=== PATIENT | female | born 1995 | race Caucasian/White ===

== ENCOUNTER 2016-12-01 18:18 | Inpatient (IN) | payer OTHER ==
[~2016-12-01] VITALS: Ht 160 cm; Wt 104.0 kg
[2016-12-01 18:49] VITALS: Ht 160 cm; Wt 104.0 kg
[2016-12-01] MEDS ORDERED: PREN1TAB79 PO (18:49)
[2016-12-01 18:50] VITALS: BP 151/81; PULSE 86; RESP 18
[2016-12-01 19:21] LABS: BASOPHILS % 0.4 % (0.0-2.0); HEMOGLOBIN 11.5 g/dl (12.0-16.0); LYMPHOCYTES % 23.5 % (15.0-51.0); MEAN CORPUSCULAR HGB CONC 33.3 g/dl (32.0-37.0)
[2016-12-01 19:24] LABS: CONDITION 1
--- NOTE | 2016-12-01 19:28 | RADRPT ---
PROCEDURE: US OB CLINICAL INDICATION: POST DATES VAG BLEEDING TECHNIQUE: Multiple sonographic images of the pelvis were obtained. The images were reviewed on a PACS workstation. COMPARISON: None FINDINGS: The cervix is not well visualized. There is a single viable intrauterine gestation. Cardiac activity is present with 148 beats per minute. There is a vertex presentation. The placenta is fundal. There is no evidence for an abruption or placenta previa. There is a subjectively normal amount of amniotic fluid. Measurements were made in order to determine age. The results are as follows (cm): BPD =8.85 HC =31.43 AC =34.25 FL =7.45 Estimated gestational age by ultrasound of approximately 36 weeks, 6 days. The estimated date of delivery by ultrasound is 12/23/2016. Reported gestational age by LMP of approximately 40 weeks, 5 days. The reported date of delivery by LMP was 11/26/2016. EFW = 3230 grams (14th percentile) IMPRESSION: Single viable intrauterine gestation of approximately 36 weeks, 6 days . The estimated date of delivery is 12/23/2016 . Dating by ultrasound is within 3 weeks and 5 days of dating by LMP. Estimated weight in the 14th percentile. Cephalic presentation. RPTAT: EE Physician Cherise Date Time Electronically viewed and signed by Physician Cherise on 12/01/2016 19:27 /
[2016-12-01 19:32] LABS: ADD UMIC YES; URINE BILIRUBIN (Dip) 1+ (NEGATIVE); URINE BLOOD (Dip) 3+ (NEGATIVE); URINE COLOR LT. YELLOW (YELLOW); URINE GLUCOSE (Dip) NEGATIVE (NEGATIVE); URINE KETONES (Dip) TRACE (NEGATIVE); URINE LEUKOCYTE ESTERASE (Dip) 2+ (NEGATIVE); URINE NITRITE (Dip) NEGATIVE (NEGATIVE); URINE TOTAL PROTEIN (Dip) TRACE (NEGATIVE); URINE UROBILINOGEN (Dip) 1.0 E.U./dL (0.1-1.0)
[2016-12-01 19:34] LABS: ALBUMIN 3.3 g/dl (3.3-4.9)
[2016-12-01 19:35] LABS: POTASSIUM 4.2 mmol/L (3.5-5.1)
[2016-12-01 19:36] LABS: CREATININE 0.46 mg/dl (0.44-1.00)
[2016-12-01 19:37] LABS: ALBUMIN/GLOBULIN RATIO 0.97; BARBITURATES Negative (NEGATIVE); BENZODIAZEPINES Negative (NEGATIVE); BILIRUBIN,INDIRECT 0.3 mg/dl (0-1.1); BILIRUBIN,TOTAL 0.3 mg/dl (0.2-1.3); TOTAL PROTEIN 6.7 g/dl (6.1-8.1); URIC ACID 4.5 mg/dl (3.1-7.9)
[2016-12-01 19:38] LABS: CALCIUM 9.1 mg/dl (8.4-10.2); COCAINE Negative (NEGATIVE)
[2016-12-01 19:39] LABS: INR 0.88; OPIATES Negative (NEGATIVE); PARTIAL THROMBOPLASTIN TIME 27.5 Sec (25.0-35.0); PROTIME 11.9 Sec (12.2-14.2); PT RATIO 0.9
[2016-12-01 19:50] LABS: CANNABINOIDS Negative (NEGATIVE)
[2016-12-01 20:16] LABS: ICTOTEST NEGATIVE (NEGATIVE)
[2016-12-01 20:18] LABS: URINE RBCS 0-2 /HPF (0)
[2016-12-01 20:19] LABS: BACTERIA,URINE MODERATE; SQUAMOUS EPITHELIAL CELL,UR MODERATE
[2016-12-01] MEDS ORDERED: OXYTOCIN 30 UNITS/LR 500 ML IV SCH ×3 (21:00)
[2016-12-01] MEDS ORDERED: LIDOCAINE 1% (MPF) 30 ML INJ INJ PRN (21:00)
[2016-12-01] MEDS ORDERED: MISOPROSTOL 200 MCG TAB PR PRN (21:00)
[2016-12-01] MEDS ORDERED: BUTORPHANOL 2 MG INJ IV PRN ×2 (21:00)
[2016-12-01] MEDS ORDERED: CARBOPROST 250 MCG INJ IM PRN (21:00)
[2016-12-01] MEDS ORDERED: METHYLERGONOVINE 0.2 MG INJ IM PRN (21:00)
[2016-12-01] MEDS ORDERED: AMPICILLIN 2 GM/NS (PMX) 100 ML IV ONE (21:00)
[2016-12-01] MEDS ORDERED: OXYTOCIN 30 UNITS/LR 500 ML IV PRN (21:00)
[2016-12-01] MEDS: LACTATED RINGER'S 1,000 ML IV SCH (21:17)
[2016-12-01 23:09] LABS: EOSINOPHILS % 0.3 % (0.0-7.0); HEMATOCRIT 34.5 % (37.0-47.0); LYMPHOCYTES # 2.1 10^3/ul (0.8-2.9); MEAN CORPUSCULAR HEMOGLOBIN 29.4 pg (29.0-33.0); MEAN CORPUSCULAR VOLUME 88.4 fl (82.0-101.0); MEAN PLATELET VOLUME 11.1 fl (7.4-10.4); MONOCYTE # 0.7 10^3/ul (0.3-0.9); MONOCYTES % 7.3 % (0.0-11.0); NEUTROPHIL # 6.3 10^3/ul (1.6-7.5); NEUTROPHILS % 68.5 % (39.0-77.0); PLATELET COUNT 214 10^3/UL (140-440); RED BLOOD COUNT 3.91 10^6/ul (4.20-5.40); RED CELL DISTRIBUTION WIDTH 13.5 % (11.5-14.5); UNCORRECTED WBC 9.1 10^3/ul (4.8-10.8); WHITE BLOOD COUNT 9.1 10^3/ul (4.8-10.8)
[2016-12-02] VITALS (7 sets, daily range): BP systolic 124–146; BP diastolic 61–75; PULSE 79–95; RESP 18–20
[2016-12-02] MEDS: AMPICILLIN 1 GM/NS (PMX) 50 ML IV SCH ×5 (01:05→16:58)
[2016-12-02] MEDS: LACTATED RINGER'S 1,000 ML IV SCH (05:25)
[2016-12-02] MEDS: LACTATED RINGER'S 1,000 ML IV PRN ×3 (09:05→18:22)
[2016-12-02] MEDS ORDERED: DIPHENHYDRAMINE 50 MG INJ IV PRN (10:00)
[2016-12-02] MEDS ORDERED: ONDANSETRON 4 MG INJ IV PRN (10:00)
[2016-12-02] MEDS ORDERED: FENTAnyl 2MCG/ML-ROPIV 0.2% 100 ML BAG EPI SCH (10:00)
[2016-12-02] MEDS ORDERED: NALOXONE (0.4 MG/ML) INJ IV PRN (10:00)
--- NOTE | 2016-12-02 10:48 | HP ---
Date/Time of Note Date/Time of Note DATE: 12/02/16 TIME: 10:46 OB - History Hx of Present Free Text/Dictation @40+wks GA in labor High Blood Pressure 150/80 : 1 Para: 0 Care: Good Care Ultrasounds: Normal mid trimester US Obstetrical Complications: None Medical Complications: None Past Family/Social History * Past Medical, Surgical, Family and Obstetric Histories reviewed from chart. OB Admission Exam Vital Signs Vital Signs Vital Signs Date Time Temp Pulse Resp B/P Pulse Ox O2 Delivery O2 Flow Rate FiO2 12/01/16 18:50 97.9 86 18 151/81 Room Air Physical Exam Abdomen: WNL Cervical Dilatation: 2cm Effacement: 50% Station: -1 Heart Rate: 140's Accelerations: Accelerations Present Decelerations: No Decelerations Varibility: Moderate Contractions on Admission: 6-10 Minutes Apart Last 72 hours Lab Results CBC & BMP 12/01/16 19:10 Liver Function Test 12/01/16 19:10 Alanine Aminotransferase (ALT/SGPT) 21 Albumin 3.3 Alkaline Phosphatase 205 H Aspartate Amino Transf (AST/SGOT) 15 Direct Bilirubin 0.00 Total Protein 6.7 OB Assessment/Plan Reason for admission: induction of labor Plan: Induction SHEILA SHEPHERD M.D. Dec 02, 2016 10:47
--- NOTE | 2016-12-02 19:23 | LDN ---
Date/Time of Note Date/Time of Note DATE: 12/02/16 TIME: 19:21 Delivery Summary Placenta Delivered: Spontaneously Meconium: Light Perineum intact?: No Perineal laceration: 2 Perineal laceration repair: yes Anesthesia type: Epidural Sponge & Needle done & correct: Yes All needle counts correct: Yes Any foreign bodies felt in the: No Problems: Delivery Information Sex Infant Sex: female Apgars 1 Minute: 7 5 Minute: 9 Suctioning Nose & mouth suctioned at yaz: Yes Delee suction performed: Yes Umbilical Cord Umbilical cord with: 3 Vessels Cord presentations: nuchal cord Nuchal cord present X: 1 Cord Blood was obtained: Yes Mother & Baby Disposition Disposition Mom & Baby to Maternity; Good: Yes Baby to NICU: No SHEILA SHEPHERD M.D. Dec 02, 2016 19:23
[2016-12-02] MEDS ORDERED: SENNA/DOCUSATE NA (8.6MG/50MG) TAB PO PRN (22:00)
[2016-12-02] MEDS ORDERED: ZOLPIDEM 5 MG TAB PO PRN (22:00)
[2016-12-02] MEDS ORDERED: CARBOPROST 250 MCG INJ IM PRN (22:00)
[2016-12-02] MEDS ORDERED: LANOLIN 7 GM TUBE TOP PRN (22:00)
[2016-12-02] MEDS ORDERED: MISOPROSTOL 200 MCG TAB PR PRN (22:00)
[2016-12-02] MEDS ORDERED: METHYLERGONOVINE 0.2 MG INJ IM PRN (22:00)
[2016-12-02] MEDS ORDERED: OXYTOCIN 30 UNITS/LR 500 ML IV PRN (22:00)
[2016-12-02] MEDS ORDERED: OXYCODONE/ACETAMINOPHEN (5/325) TAB PO PRN (23:00)
[2016-12-02] MEDS ORDERED: WITCH HAZEL/GLYCERIN PAD PR PRN (23:00)
[2016-12-02] MEDS ORDERED: BENZOCAINE 20% 56 ML SPRAY TOP PRN (23:00)
[2016-12-02] MEDS: IBUPROFEN 600 MG TAB PO SCH (23:47)
[2016-12-03] VITALS: BP 129/72; PULSE 100; RESP 20
[2016-12-03 04:00] VITALS: BP 113/58; PULSE 86; RESP 18
[2016-12-03] MEDS: LACTATED RINGER'S 1,000 ML IV* SCH ×3 (05:02→21:53)
[2016-12-03] MEDS: IBUPROFEN 600 MG TAB PO SCH ×3 (05:39→18:00)
[2016-12-03 07:55] LABS: BASOPHILS % 0.3 % (0.0-2.0); HEMATOCRIT 27.9 % (37.0-47.0); HEMOGLOBIN 9.6 g/dl (12.0-16.0); LYMPHOCYTES # 2.7 10^3/ul (0.8-2.9); LYMPHOCYTES % 15.6 % (15.0-51.0); MEAN CORPUSCULAR HEMOGLOBIN 30.4 pg (29.0-33.0); MEAN CORPUSCULAR HGB CONC 34.4 g/dl (32.0-37.0); MEAN CORPUSCULAR VOLUME 88.4 fl (82.0-101.0); MEAN PLATELET VOLUME 11.4 fl (7.4-10.4); MONOCYTE # 1.4 10^3/ul (0.3-0.9); MONOCYTES % 8.3 % (0.0-11.0); NEUTROPHILS % 75.8 % (39.0-77.0); PLATELET COUNT 172 10^3/UL (140-440); RED BLOOD COUNT 3.16 10^6/ul (4.20-5.40); RED CELL DISTRIBUTION WIDTH 13.4 % (11.5-14.5); UNCORRECTED WBC 17.1 10^3/ul (4.8-10.8); WHITE BLOOD COUNT 17.1 10^3/ul (4.8-10.8)
[2016-12-03 07:56] LABS: CONDITION 1
[2016-12-03 08:15] VITALS: BP 119/66; PULSE 86; RESP 18
[2016-12-03] MEDS: SENNA/DOCUSATE NA (8.6MG/50MG) TAB PO SCH ×2 (09:27→21:00)
--- NOTE | 2016-12-03 10:04 | RADRPT ---
PROCEDURE: OB ultrasound for biophysical profile CLINICAL INDICATION: Post dates, vaginal bleeding. Biophysical profile. . TECHNIQUE: Multiple sonographic images of the pelvis were obtained. Transabdominal view of the gr avid uterus are available for review. The images were reviewed on a PACS workstation. COMPARISON: None FINDINGS: breathing movement = 2/2 tone = 2/2 motion = 2/2 TREY = 2/2 Single intrauterine gestation is identified in cephalic position. heart rate is 146 bpm. Plac enta is fundal without evidence for abruption or previa. TREY measures 7.5 cm, within normal limits. IMPRESSION: 1. Single live intrauterine gestation. 2. Biophysical profile = 8/8. 3. TREY = 7.5 cm. RPTAT: QQ .Jasen Ac MD, Date Time Electronically viewed and signed by .Jasen Ac MD, on 12/03/2016 10:03 .R/
[2016-12-03 12:00] VITALS: BP 110/67; PULSE 80; RESP 18
[2016-12-03 16:15] VITALS: BP 117/71; PULSE 89; RESP 18
--- NOTE | 2016-12-03 19:10 | PN ---
Date/Time of Note Date/Time of Note DATE: 12/03/16 TIME: 19:09 OB Subjective Subjective Subjective PPD#1 is stable afebrile tolerates diet No VB +BM +voids No sign of depressiom VS stable Gen NAD Abd soft NT ND Genitalia No blood at perinium --->discharge plan tomorrow SHEILA SHEPHERD M.D. Dec 03, 2016 19:10
[2016-12-03 20:05] VITALS: BP 122/69; PULSE 93; RESP 18
[2016-12-04 04:05] VITALS: BP 124/74; PULSE 80; RESP 18
[2016-12-04] MEDS: IBUPROFEN 600 MG TAB PO SCH ×2 (05:52)
[2016-12-04 07:40] VITALS: BP 114/67; PULSE 78; RESP 16
[2016-12-04] MEDS: SENNA/DOCUSATE NA (8.6MG/50MG) TAB PO SCH (08:48)
[2016-12-04] MEDS ORDERED: DIPHTH/TET/ACEL PERTUSS (ADULT) 0.5 ML VIAL IM* ONE (09:00)
[2016-12-04 14:21] LABS: RUBELLA ANTIBODY - IGG 3.45
== END 2016-12-04 12:15 | disposition home or self-care (01) | DRG 775 ==
LOC: OBT 18:18 → L-D 18:20 → OBT 20:06 → OBG 20:06 → PP1 12-02 21:34
PROVIDERS: ADMIT Obstetrics & Gynecology; ATTEND Obstetrics & Gynecology
PROC: 10E0XZZ Delivery of Products of Conception, External Approach (ICD-10-PCS; principal; 2016-12-02)
PROC: 0KQM0ZZ Repair Perineum Muscle, Open Approach (ICD-10-PCS; 2016-12-02)
DX: O48.0 Post-term pregnancy (principal); O69.81X0 Labor and delivery complicated by cord around neck, without compression, not applicable or unspecified; O70.1 Second degree perineal laceration during delivery; Z3A.40 40 weeks gestation of pregnancy; Z37.0 Single live birth
CPT/HCPCS: 36415; 62319; 76815; 76818; 80053; 80307; 81001; 81003; 84560; 85025; 85384; 85610; 85730; 86592; 86703; 86762; 86900; 86901; 87340; 90715; 99464; G0463; J0290; J2590; J3010; J7120

== ENCOUNTER 2017-10-31 14:02 | Emergency (ER) | END 2017-10-31 15:01 | disposition home or self-care (01) ==

== ENCOUNTER 2018-04-11 18:57 | Emergency (ER) | END 2018-04-11 23:00 | disposition home or self-care (01) ==

== ENCOUNTER 2019-04-06 15:51 | Emergency (ER) | payer OTHER ==
[~2019-04-06] VITALS: Ht 165.1 cm; Wt 118.2 kg
[~2019-04-06 15:51] MED LIST: DICY10CA40 PO; FAMO-96 PO; IBUP-1542 PO; LOPE2CAP PO; ONDA4TAB13 PO; PHEN177S43 MT; PSEU60TA21 PO
[2019-04-06 15:57] VITALS: BP 129/71; PULSE 90; RESP 18; Ht 165.1 cm; Wt 118.2 kg
[2019-04-06] MEDS ORDERED: IBUP-1542 PO (17:08)
[2019-04-06] MEDS ORDERED: AZIT250T PO (17:08)
--- NOTE | 2019-04-06 17:18 | ERD ---
ER Documentation Chief Complaint Chief Complaint sorethroat, ear pain x3 days HPI 23-year-old woman tactile fever and sore throat x3 days as well as right earache. She states her temperature went up to 100 F, she denies difficulty speaking or swallowing, no cough or congestion, no headache or neck stiffness, no trauma, no chest pain or shortness of breath. ROS All systems reviewed and are negative except as per history of present illness. Medications Home Meds Active Scripts Azithromycin* (Zithromax*) 250 Mg Tablet, 250 MG PO .ZPACK DIRECTED, #6 TAB TAKE 500 MG (2 TABS) THE FIRST DAY THEN 250 MG (1 TAB) DAYS 2-5 Prov:BIANCA THOMAS MD 04/06/19 Ibuprofen* (Motrin*) 600 Mg Tab, 600 MG PO Q8 PRN for PAIN AND/OR INFLAMMATION, #30 TAB Prov:BIANCA THOMAS MD 04/06/19 Pseudoephedrine Hcl* (Sudogest*) 60 Mg Tablet, 60 MG PO Q6 PRN for CONGESTION for 7 Days, #20 TAB Prov:TEDDY,PORTER 04/11/18 Phenol* (Chloraseptic* [place]) 177 Ml [place].pump, 5 SPRAY MT Q2H PRN for SORE THROAT for 5 Days, #177 ML Prov:TEDDY,PORTER 04/11/18 Ibuprofen* (Motrin*) 600 Mg Tab, 600 MG PO Q6, #30 TAB Prov:TEDDY,PORTER 04/11/18 Famotidine* (Pepcid*) 20 Mg Tablet, 20 MG PO BID for 4 Days, TAB Prov:NORA FOX 10/31/17 Loperamide Hcl* (Imodium*) 2 Mg Capsule, 2 MG PO .AFTER EA LOOSE BM PRN for DIARRHEA, #20 TAB Prov:DOMINIQUE,NORA C 10/31/17 Dicyclomine HCl (Dicyclomine HCl) 10 Mg Capsule, 10 MG PO QID, #20 CAP Prov:DOMINIQUENORA WAKEFIELD C 10/31/17 Ondansetron Hcl* (Zofran*) 4 Mg Tab, 4 MG PO Q4H PRN for NAUSEA AND OR VOMITING, #15 TAB Prov:NORA FOX 10/31/17 Allergies Allergies: Coded Allergies: No Known Allergy (Unverified , 2/4/17) PMhx/Soc Medical and Surgical Hx: pt denies Medical Hx, pt denies Surgical Hx Hx Alcohol Use: No Hx Substance Use: No Hx Tobacco Use: No FmHx Family History: No diabetes Physical Exam Vitals Vital Signs Date Temp Pulse Resp B/P (MAP) Pulse Ox O2 O2 Flow FiO2 Time Delivery Rate 04/06/19 99.3 90 18 129/71 97 15:57 (90) Physical Exam GENERAL: Well-developed, well-nourished, well-hydrated, in no apparent distress, looks nontoxic in appearance HEENT: Cerumen impaction right EAC, mild pharyngeal erythema with enlarged tonsils, uvula midline, no submandibular induration SKIN: Warm and dry to touch, no abrasions, contusions, or hematomas, no lacerations, no ecchymosis, no target lesions, and without ulcers EXTREMITIES: No clubbing cyanosis or edema, calves are bilaterally symmetrical, no Homans sign, no popliteal cord sign. Distal pulses equal and bilateral PSYCH: Normal affect without agitation or irritability Procedures/MDM Patient looks well, I recommended OTC ceruminolytic and oral antibiotics that I prescribed. Patient feels much better at this time, and vital signs are normal, symptoms have improved. I did give strict instructions to return to the ED if symptoms continue or worsen, patient will otherwise follow-up with primary care physician. Patient understood instructions and agreed to plan. Disclaimer: Inadvertent spelling and grammatical errors are likely due to EHR/dictation software use and do not reflect on the overall quality of patient care. Also, please note that the electronic time recorded on this note does not necessarily reflect the actual time of the patient encounter. Departure Diagnosis: Primary Impression: Acute pharyngitis Pharyngitis/tonsillitis etiology: unspecified etiology Qualified Codes: J02.9 - Acute pharyngitis, unspecified Additional Impression: Cerumen impaction Laterality: right Qualified Codes: H61.21 - Impacted cerumen, right ear Condition: Good Patient Instructions: Pharyngitis, Strep (Presumed) BIANCA THOMAS MD Apr 06, 2019 17:18
== END 2019-04-06 17:53 | disposition home or self-care (01) ==
LOC: FTE 15:51
DX: J02.9 Acute pharyngitis, unspecified (principal); H61.21 Impacted cerumen, right ear
CPT/HCPCS: 99283